=== PATIENT | male | born 1970 | race Two or more races ===

== ENCOUNTER 2019-04-18 11:07 | Emergency (ER) | payer BC ==
[~2019-04-18] VITALS: Ht 182.9 cm; Wt 88.0 kg
--- NOTE | 2019-04-18 11:30 | NUR ---
PATIENT ARRIVED AT UNIT AMBULATORY. WITH C/O "HAVENT'S SLEPT FOR WEEKS, THINKING OF WAYS TO END MY LIFE". NO ACTIVE PLAN. PATIENT A/O X 4. NO ACUTE DISTRESS. SITTER AT BEDSIDE. WILLCONTINUE TO MONITOR
[2019-04-18 11:32] LABS: APPEARANCE,URINE Clear (CLEAR); BILIRUBIN,URINE Negative (NEGATIVE); BLOOD, URINE Negative Ery/uL (NEGATIVE); COLOR,URINE Yellow (YELLOW); KETONES,URINE Negative (NEGATIVE); LEUKOCYTE ESTERASE ,URINE Negative (NEGATIVE); NITRITE, URINE Negative (NEGATIVE); PROTEIN,URINE Negative (NEGATIVE); UGLUCOSE Negative (NEGATIVE); UROBILINOGEN,URINE 0.2 EU/dL (0.2)
[2019-04-18 11:37] LABS: BASOPHILS # (AUTO) 0.1 /CMM (0.0-0.2); EOSINOPHILS % (AUTO) 0.3 % (0.0-6.0); HEMATOCRIT 46 % (39-51); HEMOGLOBIN 16.2 g/dL (13.5-17.5); LYMPHOCYTES # (AUTO) 0.6 /CMM (0.8-4.8); LYMPHOCYTES % (AUTO) 8.8 % (20.0-44.0); MEAN CORPUSCULAR HGB CONC 35 g/dl (31.0-36.0); MEAN CORPUSCULAR VOLUME 95 fL (80-96); MONOCYTES # (AUTO) 0.4 /CMM (0.1-1.30); NEUTROPHILS # (AUTO) 5.9 /CMM (1.8-8.9); NEUTROPHILS % (AUTO) 84.9 % (43.0-81.0); PLATELET COUNT (AUTO) 178 /CMM (150-450); RED BLOOD CELL COUNT(AUTO) 4.88 MIL/uL (4.5-6.0); WHITE BLOOD COUNT (AUTO) 6.9 K/uL (4.3-11.0)
[2019-04-18 11:45] LABS: CARBON DIOXIDE 29 mmol/L (21-32); CHLORIDE 102 mmol/L (98-107); GLUCOSE 133 mg/dL (74-106); POTASSIUM 3.5 mmol/L (3.5-5.1); SODIUM SERUM 136 mmol/L (136-145); UREA NITROGEN, BLOOD 13 mg/dL (7-18)
[2019-04-18 11:50] LABS: ACETAMINOPHEN 0 ug/ml (10-30); ALANINE AMINOTRANSFERASE 20 U/L (12-78); ALBUMIN 4.3 g/dL (3.4-5.0); ALCOHOL, BLOOD < 3 mg/dL (0-0); ALKALINE PHOSPHATASE 61 U/L (46-116); ASPARTATE AMINOTRANSFERASE 12 U/L (15-37); BILIRUBIN,DIRECT 0.1 mg/dL (0.0-0.2); BILIRUBIN,TOTAL 0.6 mg/dL (0.2-1.0); SALICYLATE 2.8 mg/dL (2.8-20.0); TOTAL PROTEIN, SERUM 7.3 g/dL (6.4-8.2)
--- NOTE | 2019-04-18 13:27 | NUR ---
Social service consult for suicidal ideations. Pt. is a 48 year old male who came to [facility] complaining of " haven't slept for weeks and thinking of ways to end my life." NASREEN met with the pt. bedside. Pt. is alert and oriented x 4. Pt's mood is congruent. Pt. lives with his in [place]. Pt. states he has been feeling down and hasn't slept in days. Pt. states not being able to sleep and feeling anxious has been overwhelming and snowballed into him overly anxious. Pt. states nothing in his personal life or work that is specifically causing his anxiety. Pt. saw psychologist Everett Hernandez last week for the initial visit. Pt. has psychiatric diagnosis of Depression and Anxiety and recently started taking Paxil. Pt. was prescribed Ambien for sleep, however, pt. states, it did not work for him. Pt. denies any suicidal and homicidal ideations and doesn't want to go voluntary for psychiatric hospitalization. Dr. Degroot was present as well and pt. contracted for safety. NASREEN gave pt. referrals to Psychiatrist Dr. Cloud and [facility] .
--- NOTE | 2019-04-18 14:09 | NUR ---
Patient spoke with social welfare research worker. patient denies si/hi. cleared by dr Degroot to discharge home. Patient discharged to home in stable condition. Written and verbal after care instructions given. Patient verbalizes understanding of instruction.
[2019-04-18 14:10] VITALS: BP 128/82
== END 2019-04-18 14:10 | disposition home or self-care (01) ==
LOC: ER 11:07
DX: F32.9 Major depressive disorder, single episode, unspecified (principal); F41.9 Anxiety disorder, unspecified; F12.10 Cannabis abuse, uncomplicated
CPT/HCPCS: 36415; 80048; 80076; 80305; 80307; 80329; 81001; 85025; 99284; G0480; 81000-TC

== ENCOUNTER 2019-04-22 10:25 | Emergency (ER) | payer BC ==
[~2019-04-22] VITALS: Ht 182.9 cm; Wt 88.0 kg
--- NOTE | 2019-04-22 10:45 | NUR ---
PATIENT ARRIVED AT UNIT, ACCOMPANIED BY . PATIENT REPORTS PANIC ATTACK x 3 WEEKS, UNABLE TO SLEEP AT NIGHT PT VERBALIZED "THINKING OF WAYS TO KIL MYSELF". PATIENT DENIES HI AT THIS TIME. PATIENT CONNECTED TO MONITOR. SITTER AT BEDSIDE. WILL CONTINUE TO MONITOR ACCORDINGLY
[2019-04-22] MEDS ORDERED: LORAZEPAM INJ 2 MG/ML VIAL IM ONE (11:00)
--- NOTE | 2019-04-22 11:08 | NUR ---
URINE COLLECTED AND SENT TO LAB
[2019-04-22] MEDS ORDERED: LORAZEPAM INJ 2 MG/ML VIAL ONE (11:09)
[2019-04-22 11:34] VITALS: BP 135/81
--- NOTE | 2019-04-22 11:35 | NUR ---
Patient discharged to home in stable condition. Written and verbal after care instructions given. Patient verbalizes understanding of instruction. Patient verbalized not suicidal.
== END 2019-04-22 11:34 | disposition home or self-care (01) ==
LOC: ER 10:25
DX: F41.9 Anxiety disorder, unspecified (principal); F32.9 Major depressive disorder, single episode, unspecified
CPT/HCPCS: 96372; 99284; J2060